=== PATIENT | female | born 1995 ===

== ENCOUNTER 2017-03-07 00:45 | Emergency (ER) | payer SELFPAY ==
[2017-03-07 01:48] VITALS: BMI 26.3
== END 2017-03-07 02:10 | disposition home or self-care (01) ==
LOC: H.EROB2 00:45
DX: O23.43 Unspecified infection of urinary tract in pregnancy, third trimester (principal); Z3A.30 30 weeks gestation of pregnancy

== ENCOUNTER 2017-03-09 21:02 | Inpatient (IN) | payer SELFPAY ==
--- NOTE | 2017-03-09 21:19 | OBHP ---
Datetime: 03/07/2017 01:59 IP Adm Impression: , intrauterine ; No Active Labor; Intact Membranes IP Admit Plan: Observation/Evaluation; Discharge home Admit Comment, IP Provider: 21-year-old at 30 weeks and 2 days gestational age presents to OB ED complaining of suprapubic tenderness. Patient denies any contractions, leakage of fluids, vaginal bleeding. Patient reports good movement. Patient states that she was diagnosed with a urinary t ract infection approximately one and a half to 2 weeks ago. Patient reports that she was prescribed a ntibiotics. Patient states that she is not picking up antibiotics and has not started taking them as of yet. records not available for review. Past medical history none Past surgical history none Medications vitamins No known drug allergies Obstetrical history Social history no tobacco, no alcohol, no drugs Physical exam: Refer to physical exam findings Assessment: 21-year-old at 30 weeks gestational age with urinary tract infection. No evidence of labor at this time. Both maternal well-being and well-being reassuring at this time. Plan: Patient given prescription for Macrobid 100 mg twice a day for 7 days Patient given labor precautions Discussed plan with patient and all patient questions answered Patient discharged home Extremities - PN: Normal Abdomen - PN: Normal Back - PN: Normal Lungs - PN: Normal Heart - PN: Normal Neurologic - PN: Normal HEENT - PN: Normal General - PN: Normal FHR - Baseline A Provider: 140s-150s Membranes, Provider: Intact Contraction Comments Provider: none Comments, ACOG Physical Exam: Cervix: Long, closed, posterior No blood, no fluid, no discharge Abdomen: Gravid, soft, nontender, nondistended No rebound, no guarding No CVA tenderness bilaterally Pool Provider: Negative EGA AdmitDate IP: 30.2 Vital Signs Provider: Reviewed; Within Normal Limits IP Chief Complaint: Maternal discomfort NICHD Variability Prov Fetus A: Moderate 6-25bpm NICHD Accel Fetus A IP Provider: [id number] FHR Category Provider Fetus A: Category I Dilatation, Provider: 0 Effacement, Provider: 0 Station, Provider: -4 Genitourinary Exam: Normal
[2017-03-09 21:43] VITALS: BMI 28.1
[2017-03-09] MEDS: Lactated Ringer's 1,000 ML IV SCH ×2 (21:50→22:30)
[2017-03-09 22:33] LABS: HEMOGLOBIN 10.6 g/dL (12.0-16.0); LYMPH # 1.3 K/uL (1.0-4.3); LYMPH % 7.3 % (20.0-40.0); MEAN CELL VOLUME 86.2 fl (81.0-99.0); MEAN CORPUSCULAR HEMOGLOBIN 28.2 pg (27.0-31.0); MEAN CORPUSCULAR HGB CONC 32.7 g/dL (33.0-37.0); MEAN PLATELET VOLUME 7.2 fl (7.2-11.7); MONO # 1.8 K/uL (0.0-0.8); MONO % 9.9 % (0.0-10.0); NEUT # 14.7 K/uL (1.8-7.0); NEUT % 82.8 % (50.0-75.0); PLATELET COUNT 232 K/uL (130-400); RBC 3.77 Mil/uL (3.80-5.20); WHITE BLOOD COUNT 17.8 K/uL (4.8-10.8)
[2017-03-09 22:38] LABS: ALBUMIN 3.7 g/dL (3.5-5.0); ALT/SGPT 26 U/L (9-52); AMYLASE 60 U/L (30-110); AST/SGOT 22 U/L (14-36); BLOOD UREA NITROGEN 4 mg/dl (7-17); GFR AFRICAN-AMERICAN > 60; GFR NON-AFRICAN AMERICAN > 60; LIPASE 51 U/L (23-300)
[2017-03-09] MEDS ORDERED: Lactated Ringer's 1,000 ML IV SCH (22:59)
[2017-03-09 23:03] LABS: SQUAMOUS EPITHIAL 8 /hpf (0-5); URINE BACTERIA RARE (<OCC); URINE BILIRUBIN SMALL (NEGATIVE); URINE BLOOD MODERATE (NEGATIVE); URINE CLARITY CLOUDY (Clear); URINE COLOR AMBER (YELLOW); URINE GLUCOSE (UA) NEG (Normal); URINE LEUKOCYTE ESTERASE TRACE Leu/uL (Negative); URINE NITRATE NEGATIVE (NEGATIVE); URINE PROTEIN 100 mg/dL (NEGATIVE)
[2017-03-10 00:54] LABS: BANDS 8 % (0-2); LYMPHOCYTE 7 % (20-50); METAMYELOCYTE 1 % (0-0); MONOCYTE 7 % (0-10); NEUTROPHIL 73 % (42-75); NUCLEATED RED BLOOD CELL 1 % (0-0); PLATELET ESTIMATE NORMAL (NORMAL); REACTIVE LYMPHOCYTES 4 % (0-0); TOTAL CELLS COUNTED 100
[2017-03-10 00:55] LABS: ANISOCYTOSIS SLIGHT; HYPOCHROMIC SLIGHT
--- NOTE | 2017-03-10 06:40 | OBADHP ---
Datetime: 03/09/2017 22:24 IP Chief Complaint Other: fever, vomiting and back pain Admit Comment, IP Provider: 21-year-old at 30.4 weeks gestational age presents to OB ED compla ining of subjective fever, chills, headache, vomiting and back pain for 2 days. Pt was diagnosed with UTI on 03/07/17 and sent home with macrobid 100 mg bid x 7 days. pt reports she has been taking abx as prescribed. Patient denies any contractions, leakage of fluids, vaginal bleeding. Patient reports go od movement. pt has hx multiple UTI during this . Past medical history none Past surgical history none Medications vitamins Alergies: NKDA Obstetrical history: None past surgery consultant hx: hx chlamydia(treated) in 11/2015. Social history: no tobacco, no alcohol, no drugs assessement: 21 yo IUP at 30.4 weeks GA is evaluated for pyelonephritis. plan: Admit to [facility] unit IV fluids blood cx UA Urine C_S CBC CMP amylase, lipase FFN case presented and discussed with on-call OB attending Dr Albert Chambers, PGY1 OB Hospitalist on-call : with PGY1, I saw and examined this patient. Agree with note ex PMH: UTI x 3 (Enterococcus)...last UTI treated by Dr Cortez (no urine culture done)...will admit for pUTI ( not improved with out patient treatment...Rocephin IV q 24h FFn done negative She understands medical condition, treatment and follow up... Extremities - PN: Normal Abdomen - PN: Normal Back - PN: Abnormal Lungs - PN: Normal Heart - PN: Normal Neurologic - PN: Normal HEENT - PN: Normal General - PN: Normal FHR - Baseline A Provider: 160 Membranes, Provider: Intact Comments, ACOG Physical Exam: Back: Mild left CVA tenderness ROS: general: no fatigue/no weakness / fever/chills HEENT: slight CARO; no visual dist CV: No CP; No palpitations Resp: no SOB; no cough GI: + N/ +V/D : no F/U/D MS: no joint pain; + back pain left side lumbar/thoraciac area VAGINA: no tingling; no pain; no prodromal symtpoms Gestation - Est Wks by US: 30.4 weeks Pool Provider: Negative IP Hx Assessment: The History has been Reviewed and is Current Vital Signs Provider: Reviewed IP Chief Complaint: Maternal discomfort NICHD Variability Prov Fetus A: Moderate 6-25bpm FHR Category Provider Fetus A: Category I Dilatation, Provider: 0 Effacement, Provider: 0 Genitourinary Exam: Normal EGA AdmitDate IP: 30.4 IP Adm Impression: , intrauterine ; No Active Labor IP Admit Plan: Admit to unit Datetime: 03/07/2017 01:59 Contraction Comments Provider: none NICHD Accel Fetus A IP Provider: [id number] Station, Provider: -4
[2017-03-10] MEDS ORDERED: Lactated Ringer's 1,000 ML IV SCH ×2 (08:45→11:02)
--- NOTE | 2017-03-10 08:47 | CP.PCM.CON ---
History of Present Illness - History of Present Illness History of Present Illness: Family Medicine Consult Note Asked to evaluate a 21 y/o female @30.4wks GA for fever and hypotension. Patient reports presenting to [facility] 3-4 days ago with suprapubic tenderness and was prescribed macrobid, which she had been taking. Despite antibiotics patient returned to [facility] yesterday evening with suprapubic pain, left sided flank pain, fevers, chills, nausea and vomiting. She was febrile and found to have leukocytosis. Patient was started on IV ceftriaxone and received 2L of LR fluids. This morning patient states she feels slightly better than initial presentation however continues to report left sided flank pain/lower back pain. Meds Allergies/Adverse Reactions: Allergies Allergy/AdvReac Type Severity Reaction Status Date / Time No Known Allergies Allergy Verified 03/07/17 01:47 - Medications Medications: Current Medications Ceftriaxone Sodium 1 gm/ (Sodium Chloride) 100 mls @ 100 mls/hr IVPB DAILY@ 2230 [facility] Lactated Ringer's (Lactated Ringer's) 1,000 mls @ 125 mls/hr IV .Q8H [facility] Physical Exam - Constitutional Additional comments: Uncomfortable - Head Exam Head Exam: ATRAUMATIC, NORMAL INSPECTION, NORMOCEPHALIC - Eye Exam Eye Exam: EOMI, PERRL - ENT Exam ENT Exam: Mucous Membranes Moist - Respiratory Exam Respiratory Exam: Clear to Auscultation Bilateral, NORMAL BREATHING PATTERN. absent: Rales, Rhonchi, Wheezes - Cardiovascular Exam Cardiovascular Exam: Tachycardia, REGULAR RHYTHM, +S1, +S2 - GI/Abdominal Exam GI & Abdominal Exam: Normal Bowel Sounds, Soft, Tenderness (Left flank tenderness). absent: Distended, Guarding, Rebound - Extremities Exam Extremities exam: Positive for: normal capillary refill. Negative for: calf tenderness, pedal edema - Back Exam Back exam: CVA tenderness (L). absent: CVA tenderness (R) - Neurological Exam Neurological exam: Alert, Oriented x3 - Psychiatric Exam Psychiatric exam: Normal Affect, Normal Mood - Skin Skin Exam: Dry, Warm Results - Vital Signs Recent Vital Signs: Last Vital Signs Temp 103.0 F H 03/10/17 07:55 Pulse Resp BP Pulse Ox - Labs Result Diagrams: 03/10/17 11:40 03/10/17 11:00 Assessment & Plan - Assessment and Plan (Free Text) Assessment: 21 y/o female @30.4wks GA with fever, leukocytosis, left sided flank pain and history of positive urine culture. Plan: Sepsis -Etiology possibly secondary to acute pyelonephritis -Previous urine culture from 02/26/17 revealed enterobacter Aerogenes -S/P 3 days of macrobid with no improvement -Tmax: 103.0 @07:55 on 03/10/17 -Leukocytosis initially 17.8 but trending downward to 15.9 -Lactic acid 1.2 -Amylase/Lipase WNL -AST/ALT WNL -Follow repeat urine culture and blood culture -Renal ultrasound ordered -IV fluids @150cc/hr -ID consult appreciated -Received ceftriaxone 1gm IV once -Abx changed to cefepime 1gm Q8H by ID for broader gram neg coverage. -Monitor fever Hypokalemia -Potassium: 3.1 -K-dur 20mg PO -Will follow BMP 30 weeks gestational age -Management as per OB
--- NOTE | 2017-03-10 09:33 | OBPN ---
Datetime: 03/10/2017 09:27 IP Progress Note Comment: Patient reports temperature denies any cough sputum production reports goo d movement no vaginal bleeding or uterine contractions Vital signs reviewed MAXIMUM TEMPERATURE 103 Lungs clear to auscultation cardiovascular sinus tachycardia Abdomen soft and gravid no rebound or guarding Extremities no Homans Intrauterine at 32 weeks Pyelonephritis Monitor CBC Send lab work Continue Rocephin Follow-up UA and blood cultures and urine cultures Observation Datetime: 03/09/2017 22:24 IP Progress Impression Other: fever, chills and back pain IP Progress Plan: Continue present management Pool Provider: Negative Membranes, Provider: Intact FHR - Baseline A Provider: 160 Gestation - Est Wks by US: 30.4 weeks Vital Signs Provider: Reviewed FHR Category Provider Fetus A: Category I NICHD Variability Prov Fetus A: Moderate 6-25bpm Dilatation, Provider: 0 Effacement, Provider: 0 Datetime: 03/07/2017 01:59 Contraction Comments Provider: none NICHD Accel Fetus A IP Provider: [id number] Station, Provider: -4
[2017-03-10 09:41] VITALS: TEMP 98.8
[2017-03-10 11:35] LABS: CALCIUM 8.5 mg/dL (8.4-10.2); GFR AFRICAN-AMERICAN > 60; GFR NON-AFRICAN AMERICAN > 60
[2017-03-10 11:36] LABS: BLOOD UREA NITROGEN 2 mg/dl (7-17)
[2017-03-10 12:31] LABS: BASO % 0.2 % (0.0-2.0); EOS % 0.1 % (0.0-4.0); HEMOGLOBIN 9.7 g/dL (12.0-16.0); LYMPH # 1.6 K/uL (1.0-4.3); LYMPH % 9.8 % (20.0-40.0); MEAN CELL VOLUME 86.4 fl (81.0-99.0); MEAN CORPUSCULAR HEMOGLOBIN 28.4 pg (27.0-31.0); MEAN CORPUSCULAR HGB CONC 32.9 g/dL (33.0-37.0); MEAN PLATELET VOLUME 7.5 fl (7.2-11.7); MONO # 1.9 K/uL (0.0-0.8); MONO % 11.8 % (0.0-10.0); NEUT # 12.4 K/uL (1.8-7.0); NEUT % 78.1 % (50.0-75.0); NRBC % 0.2 % (0.0-0.0); RBC 3.39 Mil/uL (3.80-5.20); RED CELL DISTRIBUTION WIDTH 12.9 % (11.5-14.5); WHITE BLOOD COUNT 15.9 K/uL (4.8-10.8)
--- NOTE | 2017-03-10 12:36 | CP.PCM.CON ---
History of Present Illness - History of Present Illness History of Present Illness: Infectious Disease Consultation Note- asked to see this patient at the request of family practice team for fever and r/o sepsis. HPI- Patient is a pleasant 21 year old female who is 30 weeks with her first who states she developed lower bad/flank pain on wednesday and came to ED here to be evaluated and was given pain medication adn Rx for oral abx and was d/c home and states since her symptoms did not improve on the oral antibiotics and also she developed fever and some nausea in addition she returned to hospital yesterday and was admitted for fever and r/o sepsis. Pt. was found to have leukocytosis and + UA and hence was admitted and was started on IV ceftriaxone by the primary team. She states he feels better compared to yesterday and denies any nausea today but states her appetite is not good still. she states she had CARO on admission but states it has resolved today. she denies any fever or chills today, denies any abdominal paina nd states her pain is only in her left lower back region without any radiation, denie any dysurea, denies any diarrhea, denies any cough, denies any sob, denies any chest pain. Pt's is at her bedside as well. denies any allergy to any meds. Review of Systems - Review of Systems Review of Systems: ROS- denies any nausea today but states her appetite is not good still. she states she had CARO on admission but states it has resolved today. she denies any fever or chills today, denies any abdominal paina nd states her pain is only in her left lower back region without any radiation, denie any dysurea, denies any diarrhea, denies any cough, denies any sob, denies any chest pain. Past Patient History - Past Medical History & Family History Past Medical History?: No - Past Social History Smoking Status: Never Smoked Alcohol: None Drugs: Denies Home Situation {Lives}: With Family - CARDIAC Hx Cardiac Disorders: No - PULMONARY Hx Respiratory Disorders: No - NEUROLOGICAL Hx Neurological Disorder: No - HEENT Hx HEENT Problems: No - RENAL Hx Chronic Kidney Disease: No - HEMATOLOGICAL/ONCOLOGICAL Hx Blood Disorders: No Meds Allergies/Adverse Reactions: Allergies Allergy/AdvReac Type Severity Reaction Status Date / Time No Known Allergies Allergy Verified 03/07/17 01:47 - Medications Medications: Current Medications Ceftriaxone Sodium 1 gm/ (Sodium Chloride) 100 mls @ 100 mls/hr IVPB DAILY@ 2230 [facility] Last Admin: 03/10/17 11:05 Dose: Not Given Lactated Ringer's (Lactated Ringer's) 1,000 mls @ 150 mls/hr IV .Q6H40M [facility] Last Admin: 03/10/17 11:16 Dose: 150 mls/hr Physical Exam - Constitutional Appears: No Acute Distress - Head Exam Head Exam: ATRAUMATIC - Eye Exam Eye Exam: EOMI, PERRL - ENT Exam ENT Exam: Normal Oropharynx - Neck Exam Neck exam: Positive for: Full Rom - Respiratory Exam Respiratory Exam: Clear to Auscultation Bilateral, NORMAL BREATHING PATTERN - Cardiovascular Exam Cardiovascular Exam: RRR, +S1, +S2 - GI/Abdominal Exam GI & Abdominal Exam: Normal Bowel Sounds, Soft Additional comments: No tenderness to palpation , no guarding, no rebound Minimal left CVA tenderness only - Extremities Exam Extremities exam: Positive for: normal inspection - Neurological Exam Neurological exam: Alert, Oriented x3 Results - Vital Signs Recent Vital Signs: Last Vital Signs Temp 98.8 F 03/10/17 08:55 Pulse Resp BP Pulse Ox - Labs Result Diagrams: 03/10/17 11:40 03/10/17 11:00 Labs: Laboratory Results - last 24 hr 03/10/17 03/10/17 03/10/17 11:00 11:00 11:40 WBC 15.9 H RBC 3.39 L Hgb 9.7 L Hct 29.3 L MCV 86.4 MCH 28.4 MCHC 32.9 L RDW 12.9 Plt Count 203 MPV 7.5 Neut % (Auto) 78.1 H Lymph % (Auto) 9.8 L [place] % (Auto) 11.8 H Eos % (Auto) 0.1 Baso % (Auto) 0.2 Neut # 12.4 H Lymph # 1.6 [place] # 1.9 H Eos # 0.0 Baso # 0.0 Sodium 135 Potassium 3.1 L Chloride 105 Carbon Dioxide 22 Anion Gap 11 BUN 2 L Creatinine 0.5 L Est GFR ( Amer) > 60 Est GFR (Non-Af Amer) > 60 Random Glucose 96 Lactic Acid 1.2 Calcium 8.5 Laboratory Results - last 72 hr 03/09/17 03/09/17 03/09/17 22:00 22:00 22:00 WBC 17.8 H D RBC 3.77 L Hgb 10.6 L Hct 32.5 L MCV 86.2 MCH 28.2 MCHC 32.7 L RDW 13.0 Plt Count 232 MPV 7.2 Neut % (Auto) 82.8 H Lymph % (Auto) 7.3 L [place] % (Auto) 9.9 Eos % (Auto) 0.0 Baso % (Auto) 0.0 Neut # 14.7 H Lymph # 1.3 [place] # 1.8 H Eos # 0.0 Baso # 0.0 Neutrophils % (Manual) 73 Band Neutrophils % 8 H Lymphocytes % (Manual) 7 L Reactive Lymphs % 4 H Monocytes % (Manual) 7 Metamyelocytes % 1 H Nucleated RBC % 1 H Platelet Estimate Normal Hypochromasia (manual) Slight Anisocytosis (manual) Slight Sodium 133 Potassium 3.1 L Chloride 102 Carbon Dioxide 21 L Anion Gap 13 BUN 4 L Creatinine 0.6 L Est GFR ( Amer) > 60 Est GFR (Non-Af Amer) > 60 Random Glucose 120 H Lactic Acid Calcium 9.0 Total Bilirubin 0.6 AST 22 ALT 26 Alkaline Phosphatase 107 Total Protein 7.2 Albumin 3.7 Globulin 3.6 Albumin/Globulin Ratio 1.0 Amylase 60 Lipase 51 Urine Color Urine Clarity Urine pH Ur Specific Joes Urine Protein Urine Glucose (UA) Urine Ketones Urine Blood Urine Nitrate Urine Bilirubin Urine Urobilinogen Ur Leukocyte Esterase Urine RBC (Auto) Urine Microscopic WBC Ur Squamous Epith Cells Urine Bacteria Fibronectin Negative Fibronectin Comment None 03/09/17 03/10/17 03/10/17 22:00 11:00 11:00 WBC RBC Hgb Hct MCV MCH MCHC RDW Plt Count MPV Neut % (Auto) Lymph % (Auto) [place] % (Auto) Eos % (Auto) Baso % (Auto) Neut # Lymph # [place] # Eos # Baso # Neutrophils % (Manual) Band Neutrophils % Lymphocytes % (Manual) Reactive Lymphs % Monocytes % (Manual) Metamyelocytes % Nucleated RBC % Platelet Estimate Hypochromasia (manual) Anisocytosis (manual) Sodium 135 Potassium 3.1 L Chloride 105 Carbon Dioxide 22 Anion Gap 11 BUN 2 L Creatinine 0.5 L Est GFR ( Amer) > 60 Est GFR (Non-Af Amer) > 60 Random Glucose 96 Lactic Acid 1.2 Calcium 8.5 Total Bilirubin AST ALT Alkaline Phosphatase Total Protein Albumin Globulin Albumin/Globulin Ratio Amylase Lipase Urine Color Stephania Urine Clarity Cloudy Urine pH 5.0 Ur Specific Joes 1.027 Urine Protein 100 Urine Glucose (UA) Neg Urine Ketones Trace Urine Blood Moderate Urine Nitrate Negative Urine Bilirubin Small Urine Urobilinogen 4.0 H Ur Leukocyte Esterase Trace Urine RBC (Auto) 257 H Urine Microscopic WBC 16 H Ur Squamous Epith Cells 8 H Urine Bacteria Rare Fibronectin Fibronectin Comment 03/10/17 11:40 WBC 15.9 H RBC 3.39 L Hgb 9.7 L Hct 29.3 L MCV 86.4 MCH 28.4 MCHC 32.9 L RDW 12.9 Plt Count 203 MPV 7.5 Neut % (Auto) 78.1 H Lymph % (Auto) 9.8 L [place] % (Auto) 11.8 H Eos % (Auto) 0.1 Baso % (Auto) 0.2 Neut # 12.4 H Lymph # 1.6 [place] # 1.9 H Eos # 0.0 Baso # 0.0 Neutrophils % (Manual) Band Neutrophils % Lymphocytes % (Manual) Reactive Lymphs % Monocytes % (Manual) Metamyelocytes % Nucleated RBC % Platelet Estimate Hypochromasia (manual) Anisocytosis (manual) Sodium Potassium Chloride Carbon Dioxide Anion Gap BUN Creatinine Est GFR ( Amer) Est GFR (Non-Af Amer) Random Glucose Lactic Acid Calcium Total Bilirubin AST ALT Alkaline Phosphatase Total Protein Albumin Globulin Albumin/Globulin Ratio Amylase Lipase Urine Color Urine Clarity Urine pH Ur Specific Joes Urine Protein Urine Glucose (UA) Urine Ketones Urine Blood Urine Nitrate Urine Bilirubin Urine Urobilinogen Ur Leukocyte Esterase Urine RBC (Auto) Urine Microscopic WBC Ur Squamous Epith Cells Urine Bacteria Fibronectin Fibronectin Comment Microbiology 02/26/17 15:47 Urine,Clean Catch Urine Culture - Final Enterobacter Aerogenes 01/07/17 15:42 Urine,Clean Catch Urine Culture - Final Enterobacter Aerogenes Assessment & Plan (1) Leukocytosis Status: Acute (2) UTI (urinary tract infection) in in third trimester Status: Acute - Assessment and Plan (Free Text) Assessment: A/P- 21 year old female 30 weeks with leukocytosis and + UA and based on previous recent urine cx enterobacter UTI. currently pt. is comfortable and in NAD. leukocytosis trending down compared to yesterday's labs./ Afebrile urine cx from 02/26/2017- enterobacter Aerogenes sens to ceftriaxone and cefepime. plan- await blood and urine cx from this admission. In the interim would advise to switch abx to cefepime for broader gram neg coverage ( safe during ). await renal US r/o pyelo. monitor temp and wbc closely. All above d/w patient and she verbalizes full understanding of all above. Thank you for allowing me to take part in the care oft his patient.
--- NOTE | 2017-03-10 14:52 | US ---
PROCEDURE: Ultrasound of the Kidneys HISTORY: Suspected pyelonephritis COMPARISON: None available. TECHNIQUE: Sonogram of the kidneys. FINDINGS: RIGHT KIDNEY: Measures: 9.8 cm. Normal in size, contour and echogenicity. No mass or calculus. Minimal fullness of collecting system without kyle hydronephrosis. LEFT KIDNEY: Measures: 11.3 cm. Normal in size, contour and echogenicity. No stone, solid mass lesion or hydronephrosis visualized. OTHER FINDINGS: None. IMPRESSION: Unremarkable renal sonogram.
[2017-03-10] MEDS: Cefepime 1 GM in Sodium Chloride 0.9% 100 ML IVPB SCH (16:58)
[2017-03-10] MEDS ORDERED: Potassium Chloride 20 mEq/15 ml LIQ UD PO ONE (17:14)
[2017-03-10] MEDS: Lactated Ringer's 1,000 ML IV SCH (22:03)
[2017-03-11] MEDS: Cefepime 1 GM in Sodium Chloride 0.9% 100 ML IVPB SCH ×3 (01:05→16:36)
[2017-03-11 06:44] LABS: BASO % 0.2 % (0.0-2.0); EOS % 0.1 % (0.0-4.0); HEMOGLOBIN 8.9 g/dL (12.0-16.0); LYMPH # 1.1 K/uL (1.0-4.3); MEAN CELL VOLUME 85.9 fl (81.0-99.0); MEAN CORPUSCULAR HEMOGLOBIN 28.6 pg (27.0-31.0); MEAN CORPUSCULAR HGB CONC 33.3 g/dL (33.0-37.0); MEAN PLATELET VOLUME 7.1 fl (7.2-11.7); MONO # 0.9 K/uL (0.0-0.8); MONO % 8.7 % (0.0-10.0); NEUT # 8.8 K/uL (1.8-7.0); RBC 3.12 Mil/uL (3.80-5.20); RED CELL DISTRIBUTION WIDTH 13.1 % (11.5-14.5); WHITE BLOOD COUNT 10.8 K/uL (4.8-10.8)
[2017-03-11 07:00] LABS: CALCIUM 8.5 mg/dL (8.4-10.2); GFR AFRICAN-AMERICAN > 60; GFR NON-AFRICAN AMERICAN > 60
[2017-03-11 07:06] LABS: BLOOD UREA NITROGEN < 2 mg/dl (7-17)
[2017-03-11] MEDS ORDERED: Potassium Chloride 20 mEq ER Tab PO ONE (11:02)
[2017-03-11] MEDS: Lactated Ringer's 1,000 ML IV SCH (14:41)
--- NOTE | 2017-03-11 14:59 | CP.PCM.PN ---
Subjective - Date & Time of Evaluation Date of Evaluation: 03/11/17 Time of Evaluation: 12:30 - Subjective Subjective: Patient seen and examined at bedside with attending. She appears in no acute distress, sitting upright along side bed. Patient states that her left flank and back pain has improved significantly from prior assessment. She continues to experience epigastric burning sensation radiating upward but denies any further episodes of vomiting. She has been afebrile over the last 24 hours and further denies chills, nausea or SOB. Patient has been tolerating PO. Renal U/S ordered yesterday has returned unremarkable and urine culture results are still pending. Objective - Vital Signs/Intake and Output Vital Signs (last 24 hours): Temp Pulse Resp BP Pulse Ox 98.8 F 03/10/17 08:55 - Medications Medications: Current Medications Acetaminophen (Tylenol 325mg Tab) 650 mg PO Q6 PRN PRN Reason: Fever >100.4 F Last Admin: 03/11/17 10:50 Dose: 650 mg Famotidine (Pepcid) 20 mg PO DAILY [facility] Last Admin: 03/11/17 11:49 Dose: 20 mg Cefepime HCl 1 gm/ Sodium (Chloride) 100 mls @ 100 mls/hr IVPB Q8 [facility] Last Admin: 03/11/17 08:05 Dose: 100 mls/hr Lactated Ringer's (Lactated Ringer's) 1,000 mls @ 125 mls/hr IV .Q8H [facility] Last Admin: 03/11/17 14:41 Dose: 125 mls/hr Lactobacillus Acidophilus (Bacid Acidophilus) 1 cap PO BID [facility] - Labs Labs: 03/11/17 05:45 03/11/17 05:45 - Constitutional Appears: Non-toxic, No Acute Distress - Head Exam Head Exam: ATRAUMATIC, NORMAL INSPECTION, NORMOCEPHALIC - Eye Exam Eye Exam: EOMI, PERRL - ENT Exam ENT Exam: Mucous Membranes Moist - Respiratory Exam Respiratory Exam: Clear to Ausculation Bilateral, NORMAL BREATHING PATTERN. absent: Rales, Rhonchi, Wheezes, Respiratory Distress - Cardiovascular Exam Cardiovascular Exam: REGULAR RHYTHM, RRR, +S1, +S2 - GI/Abdominal Exam GI & Abdominal Exam: Soft, Tenderness (Mild epigastric and left flank tenderness ) Additional comments: Gravid abdomen. - Extremities Exam Extremities Exam: absent: Calf Tenderness, Pedal Edema - Back Exam Back Exam: CVA tenderness (L) (Improved from prior assessment). absent: CVA tenderness (R) - Neurological Exam Neurological Exam: Alert, Awake, Oriented x3 - Psychiatric Exam Psychiatric exam: Normal Affect, Normal Mood - Skin Skin Exam: Dry, Warm Assessment and Plan - Assessment and Plan (Free Text) Assessment: Patient is a 21 y/o female @30.4wks GA who presented to [facility] on 03/09/17 with suprapubic pain, left sided flank pain, fevers, chills, nausea and vomiting. She was febrile and found to have leukocytosis. Patient subsequently received IV fluids and was started on IV antibiotics. She has been improving with treatment but reports some persistent left lower back and epigastric pain. Plan: Epigastric pain and left flank pain -Etiology of epigastric and left sided flank pain/back pain possibly secondary to acute pyelonephritis and gastroesophageal reflux -Previous urine culture from 02/26/17 revealed enterobacter Aerogenes and patient had no improvement after 3 days of macrobid -Patient has been afebrile for the last 24 hours. Tmax: 103.0 @07:55 on 03/10/17 -Leukocytosis has resolved 17.8 > 15.9 > 10.8 -Amylase/Lipase WNL -AST/ALT WNL -Blood culture has no growth after 24 hrs -Repeat urine C&S pending results -Renal ultrasound did not detect any masses or hydronephrosis. -MRI abdomen ordered to better visualize any possible alternative intra- abdominal pathology -ID consult appreciated -Received ceftriaxone 1gm IV once -Abx changed to cefepime 1gm Q8H by ID for broader gram neg coverage. (Started , Current day 2) -Pepcid 20mg PO daily as per existing OB orders Hypokalemia -Potassium improved from 3.1 > 3.4 -K-dur 20mg PO daily -Will follow BMP Sepsis, resolved -Etiology possibly secondary to acute pyelonephritis 30 weeks gestational age -Management as per OB
[2017-03-11] MEDS: Lactobacillus Acidophilus 500 MU Cap PO SCH (16:36)
--- NOTE | 2017-03-11 19:30 | CP.PCM.PN ---
Subjective - Date & Time of Evaluation Date of Evaluation: 03/11/17 Time of Evaluation: 19:30 - Subjective Subjective: ID Note- Pt. seen and examined today. Pt. in much better spirits and states she feels much better. Sh denies any fever or chills, denies any dysurea and states her left flank pain has resolved. Objective - Vital Signs/Intake and Output Vital Signs (last 24 hours): Temp Pulse Resp BP Pulse Ox 98.8 F 03/10/17 08:55 - Medications Medications: Current Medications Acetaminophen (Tylenol 325mg Tab) 650 mg PO Q6 PRN PRN Reason: Fever >100.4 F Last Admin: 03/11/17 10:50 Dose: 650 mg Famotidine (Pepcid) 20 mg PO DAILY [facility] Last Admin: 03/11/17 11:49 Dose: 20 mg Cefepime HCl 1 gm/ Sodium (Chloride) 100 mls @ 100 mls/hr IVPB Q8 [facility] Last Admin: 03/11/17 16:36 Dose: 100 mls/hr Lactated Ringer's (Lactated Ringer's) 1,000 mls @ 125 mls/hr IV .Q8H [facility] Last Admin: 03/11/17 14:41 Dose: 125 mls/hr Lactobacillus Acidophilus (Bacid Acidophilus) 1 cap PO BID [facility] Last Admin: 03/11/17 16:36 Dose: 1 cap - Labs Labs: - Additional Findings Additional findings: - Constitutional Appears: No Acute Distress - Head Exam Head Exam: ATRAUMATIC - Eye Exam Eye Exam: EOMI, PERRL - ENT Exam ENT Exam: Normal Oropharynx - Neck Exam Neck exam: Positive for: Full Rom - Respiratory Exam Respiratory Exam: Clear to Auscultation Bilateral, NORMAL BREATHING PATTERN - Cardiovascular Exam Cardiovascular Exam: RRR, +S1, +S2 - GI/Abdominal Exam GI & Abdominal Exam: Normal Bowel Sounds, Soft Additional comments: No tenderness to palpation , no guarding, no rebound no CVA tenderness b/l - Extremities Exam Extremities exam: Positive for: normal inspection - Neurological Exam Neurological exam: Alert, Oriented x 3 Laboratory Results - last 72 hr 03/09/17 03/09/17 03/09/17 22:00 22:00 22:00 WBC 17.8 H D RBC 3.77 L Hgb 10.6 L Hct 32.5 L MCV 86.2 MCH 28.2 MCHC 32.7 L RDW 13.0 Plt Count 232 MPV 7.2 Neut % (Auto) 82.8 H Lymph % (Auto) 7.3 L Desha % (Auto) 9.9 Eos % (Auto) 0.0 Baso % (Auto) 0.0 Neut # 14.7 H Lymph # 1.3 Desha # 1.8 H Eos # 0.0 Baso # 0.0 Neutrophils % (Manual) 73 Band Neutrophils % 8 H Lymphocytes % (Manual) 7 L Reactive Lymphs % 4 H Monocytes % (Manual) 7 Metamyelocytes % 1 H Nucleated RBC % 1 H Platelet Estimate Normal Hypochromasia (manual) Slight Anisocytosis (manual) Slight Sodium 133 Potassium 3.1 L Chloride 102 Carbon Dioxide 21 L Anion Gap 13 BUN 4 L Creatinine 0.6 L Est GFR ( Amer) > 60 Est GFR (Non-Af Amer) > 60 Random Glucose 120 H Lactic Acid Calcium 9.0 Total Bilirubin 0.6 AST 22 ALT 26 Alkaline Phosphatase 107 Total Protein 7.2 Albumin 3.7 Globulin 3.6 Albumin/Globulin Ratio 1.0 Amylase 60 Lipase 51 Urine Color Urine Clarity Urine pH Ur Specific [place] Urine Protein Urine Glucose (UA) Urine Ketones Urine Blood Urine Nitrate Urine Bilirubin Urine Urobilinogen Ur Leukocyte Esterase Urine RBC (Auto) Urine Microscopic WBC Ur Squamous Epith Cells Urine Bacteria Fibronectin Negative Fibronectin Comment None 03/09/17 03/10/17 03/10/17 22:00 11:00 11:00 WBC RBC Hgb Hct MCV MCH MCHC RDW Plt Count MPV Neut % (Auto) Lymph % (Auto) Desha % (Auto) Eos % (Auto) Baso % (Auto) Neut # Lymph # Desha # Eos # Baso # Neutrophils % (Manual) Band Neutrophils % Lymphocytes % (Manual) Reactive Lymphs % Monocytes % (Manual) Metamyelocytes % Nucleated RBC % Platelet Estimate Hypochromasia (manual) Anisocytosis (manual) Sodium 135 Potassium 3.1 L Chloride 105 Carbon Dioxide 22 Anion Gap 11 BUN 2 L Creatinine 0.5 L Est GFR ( Amer) > 60 Est GFR (Non-Af Amer) > 60 Random Glucose 96 Lactic Acid 1.2 Calcium 8.5 Total Bilirubin AST ALT Alkaline Phosphatase Total Protein Albumin Globulin Albumin/Globulin Ratio Amylase Lipase Urine Color Stephania Urine Clarity Cloudy Urine pH 5.0 Ur Specific [place] 1.027 Urine Protein 100 Urine Glucose (UA) Neg Urine Ketones Trace Urine Blood Moderate Urine Nitrate Negative Urine Bilirubin Small Urine Urobilinogen 4.0 H Ur Leukocyte Esterase Trace Urine RBC (Auto) 257 H Urine Microscopic WBC 16 H Ur Squamous Epith Cells 8 H Urine Bacteria Rare Fibronectin Fibronectin Comment 03/10/17 03/11/17 03/11/17 11:40 05:45 05:45 WBC 15.9 H 10.8 RBC 3.39 L 3.12 L Hgb 9.7 L 8.9 L Hct 29.3 L 26.8 L MCV 86.4 85.9 MCH 28.4 28.6 MCHC 32.9 L 33.3 RDW 12.9 13.1 Plt Count 203 180 MPV 7.5 7.1 L Neut % (Auto) 78.1 H 81.0 H Lymph % (Auto) 9.8 L 10.0 L Desha % (Auto) 11.8 H 8.7 Eos % (Auto) 0.1 0.1 Baso % (Auto) 0.2 0.2 Neut # 12.4 H 8.8 H Lymph # 1.6 1.1 Desha # 1.9 H 0.9 H Eos # 0.0 0.0 Baso # 0.0 0.0 Neutrophils % (Manual) Band Neutrophils % Lymphocytes % (Manual) Reactive Lymphs % Monocytes % (Manual) Metamyelocytes % Nucleated RBC % Platelet Estimate Hypochromasia (manual) Anisocytosis (manual) Sodium 135 Potassium 3.4 L Chloride 105 Carbon Dioxide 24 Anion Gap 9 L BUN < 2 L Creatinine 0.4 L Est GFR ( Amer) > 60 Est GFR (Non-Af Amer) > 60 Random Glucose 85 Lactic Acid Calcium 8.5 Total Bilirubin AST ALT Alkaline Phosphatase Total Protein Albumin Globulin Albumin/Globulin Ratio Amylase Lipase Urine Color Urine Clarity Urine pH Ur Specific [place] Urine Protein Urine Glucose (UA) Urine Ketones Urine Blood Urine Nitrate Urine Bilirubin Urine Urobilinogen Ur Leukocyte Esterase Urine RBC (Auto) Urine Microscopic WBC Ur Squamous Epith Cells Urine Bacteria Fibronectin Fibronectin Comment Microbiology 03/09/17 22:00 Urine,Clean Catch Urine Culture - Final No Growth (<1,000 CFU/ML) 03/10/17 15:00 Blood-Venous Blood Culture - Preliminary NO GROWTH AFTER 24 HOURS 03/09/17 22:00 Blood-Venous Blood Culture - Preliminary NO GROWTH AFTER 24 HOURS Accession No. : [id number] Patient Name / ID : EDEL BRITO / [id number] Exam Date : 03/10/2017 13:40:37 ( Approved ) Study Comment : Sex / Age : F / 21Y Creator : Pavel Gamboa MD Dictator : Pavel Gamboa MD Remote Control Assembler : Psychiatric Cns : Pavel Gamboa MD Approver2 : Report Date : 03/10/2017 14:46:36 My Comment : PROCEDURE: Ultrasound of the Kidneys HISTORY: Suspected pyelonephritis COMPARISON: None available. TECHNIQUE: Sonogram of the kidneys. FINDINGS: RIGHT KIDNEY: Measures: 9.8 cm. Normal in size, contour and echogenicity. No mass or calculus. Minimal fullness of collecting system without kyle hydronephrosis. LEFT KIDNEY: Measures: 11.3 cm. Normal in size, contour and echogenicity. No stone, solid mass lesion or hydronephrosis visualized. OTHER FINDINGS: None. IMPRESSION: Unremarkable renal sonogram. Assessment and Plan (1) Leukocytosis Status: Acute (2) UTI (urinary tract infection) in in third trimester Status: Acute - Assessment and Plan (Free Text) Assessment: A/P- 21 year old female 30 weeks with leukocytosis and + UA and based on previous recent urine cx enterobacter UTI. afebrile today. leukocytosis has resolved today. blood cx- neg x 2 urine cx from this admission - negative urine cx from 02/26/2017- enterobacter Aerogenes sens to ceftriaxone and cefepime. renal US- negative as per report plan- advise to continue with IV cefepime day #2 await renal US r/o pyelo. monitor temp .
[2017-03-12] MEDS: Cefepime 1 GM in Sodium Chloride 0.9% 100 ML IVPB SCH ×3 (00:25→16:05)
[2017-03-12 07:11] LABS: HEMOGLOBIN 8.5 g/dL (12.0-16.0); MEAN CELL VOLUME 85.7 fl (81.0-99.0); MEAN CORPUSCULAR HGB CONC 33.8 g/dL (33.0-37.0); RBC 2.94 Mil/uL (3.80-5.20); WHITE BLOOD COUNT 7.8 K/uL (4.8-10.8)
[2017-03-12 07:30] LABS: BLOOD UREA NITROGEN 3 mg/dl (7-17); CALCIUM 8.6 mg/dL (8.4-10.2); GFR AFRICAN-AMERICAN > 60; GFR NON-AFRICAN AMERICAN > 60
[2017-03-12] MEDS: Lactobacillus Acidophilus 500 MU Cap PO SCH ×2 (09:18→16:04)
[2017-03-12] MEDS: Lactated Ringer's 1,000 ML IV SCH (09:19)
--- NOTE | 2017-03-12 13:35 | OBPN ---
Datetime: 03/12/2017 05:56 IP Progress Impression Other: fever, back pain and vomiting IP Progress Plan: Continue present management IP Progress Note Comment: 21-year-old at 30.6 weeks gestational age admitted to [facility] unit fo r pyelonephritis. Pt denies any fever, chills, nausea, vomiting, headache or neck stiffness last nigh t. maxium temperature was 98.4 F last night. reports mild left flank pain this morning but denies dys uria or suprapubic pain. reports +FM. denies BV, SROM. PE: General: A_O, resting comfortably in bed, NAD HEENT: white sclera, pink conjunctiva, oral mucosa moist. supple neck. Lungs: CTA B/L, no wheezing, rhonchi or rales CVS: sinus tachy, normal S1, S2. ABD: +BS, non-tender, non-rebound tenderness back: mild left CVA tenderness EXT: no edema, negative Wandy's sign, calves nontender Neuro/psych: AAOX3, no grossly focal deficit, preserved affect and mood. assessement: Intrauterine at 32.6 weeks gestation. Pyelonephritis Monitor CBC, BMP Continue with cefepin as per ID recommendation. blood cx and urine cx both negative Continue Observation Sultan Chambers, PGY1 Addendum by Dr. Dubois: Patient evaluated independently. Patient is asymptomatic, no abdominal pain , no back pain, no fever, no vaginal bleeding, +FM, no leaking. Patient tolerating PO diet, ambulatin g/voiding well. NST last night Reactive. no ctxns. VS stable last night. Over 48 hours no fever. MRI report pending. WBC this morning = 7.8. WIll speak with ID and Family medicine team. Patient could po ssibly be discharged home on PO antibiotics Vital Signs Provider: Reviewed
--- NOTE | 2017-03-12 14:24 | MRI ---
PROCEDURE: MRI abdomen HISTORY: Fever, Leukocytosis, Abdominal pain COMPARISON: None available TECHNIQUE: Multiplanar, multi sequence imaging of the abdomen and pelvis was performed without intravenous gadolinium administration. FINDINGS: The examination demonstrates an intrauterine gestation in cephalic presentation. There is a left lateral placenta. There is no evidence of placenta previa. Normal quantity of amniotic fluid is visualized. No gross anatomic abnormality. Fluid distends the stomach and urinary bladder. No hydronephrosis. The maternal liver is normal in size, contour and signal intensity. There is a 4 mm high T2 rounded nonspecific lesion in the dome of the right hepatic lobe. No other mass. No biliary dilatation. The gallbladder is unremarkable. There is no mural thickening or filling defect. No pericholecystic fluid or inflammatory change appreciated. The spleen is normal in appearance. There is no focal mass. The pancreas is unremarkable. There is no pancreatic mass or peripancreatic fluid collection. There is no adrenal mass. There is no renal mass. There is mild right hydronephrosis likely related to the late term gestation. No heterogeneity of the renal parenchymal signal is appreciated. There is trace left perinephric fluid. This is a nonspecific finding but may be seen in association with pyelonephritis. There is no right perinephric fluid. A normal appendix is not positively identified. There is no evidence of acute appendicitis. There is no pericecal inflammatory change. There is trace fluid in the right paracolic gutter, nonspecific. There is no generalized ascites. There is a very small umbilical hernia containing trace ascites. No abnormal bowel is appreciated. Both maternal ovaries are identified. They are unremarkable, with multiple small follicles. The maternal urinary bladder is poorly distended. There is no gross mural thickening. The marrow signal of the visualized osseous structures is within normal limits. IMPRESSION: No clear evidence of acute appendicitis. A normal appendix is not positively identified. There is trace fluid in the right pericolic gutter. This is nonspecific. There is mild right hydronephrosis and proximal hydroureter, consistent with current late term gestation. There is no left hydronephrosis. There is trace left perinephric fluid. This is a nonspecific finding but may be seen in association with pyelonephritis. No other signs of pyelonephritis are evident no evidence of renal abscess. No other significant abnormality is noted. Preliminary interpretation of this examination was reported by Navut at 5:37 p.m. on 03/11/2017. There is discordance of this report with the preliminary interpretation. Trace left perinephric fluid was not described in the preliminary report of this examination. Trace right pericolic gutter fluid was not described in the preliminary report of this examination. These are nonspecific findings, however. The remainder of the parameter border is in concurrence with this report.
--- NOTE | 2017-03-12 16:52 | US ---
PROCEDURE: Limited biophysical profile HISTORY: pyelonephritis COMPARISON: Not available TECHNIQUE: A limited biophysical profile examination was performed. Full evaluation of the including biometry was not performed at this time. FINDINGS: A single live intrauterine gestation is identified in cephalic presentation. cardiac activity is observed. The biophysical profile score is 8 out of 8. The JOAQUIN is 12.81 cm. The heart rate is 130 beats per minute. IMPRESSION: Normal limited biophysical profile examination
--- NOTE | 2017-03-12 17:29 | CP.PCM.PN ---
Subjective - Date & Time of Evaluation Date of Evaluation: 03/12/17 Time of Evaluation: 10:00 - Subjective Subjective: Patient appears more comfortable today and reports resolution of left sided flank pain. She also reports significant improvement in epigastric burning sensation. She continues to remain afebrile with no leukocytosis for over 48 hrs. Patient is tolerating PO and denies chills, chest pain, sob, dysuria nausea or vomiting. MRI revealed signs of left vernon-nephric stranding and urine culture results reveal no growth to date. Objective - Vital Signs/Intake and Output Vital Signs (last 24 hours): Temp Pulse Resp BP Pulse Ox 98.8 F 03/10/17 08:55 - Medications Medications: Current Medications Acetaminophen (Tylenol 325mg Tab) 650 mg PO Q6 PRN PRN Reason: Fever >100.4 F Last Admin: 03/11/17 10:50 Dose: 650 mg Famotidine (Pepcid) 20 mg PO DAILY [facility] Last Admin: 03/12/17 09:18 Dose: 20 mg Cefepime HCl 1 gm/ Sodium (Chloride) 100 mls @ 100 mls/hr IVPB Q8 [facility] Last Admin: 03/12/17 16:05 Dose: 100 mls/hr Lactated Ringer's (Lactated Ringer's) 1,000 mls @ 125 mls/hr IV .Q8H [facility] Last Admin: 03/12/17 09:19 Dose: 125 mls/hr Lactobacillus Acidophilus (Bacid Acidophilus) 1 cap PO BID [facility] Last Admin: 03/12/17 16:04 Dose: 1 cap - Labs Labs: 03/12/17 06:00 03/12/17 06:00 - Constitutional Appears: Non-toxic, No Acute Distress - Head Exam Head Exam: ATRAUMATIC, NORMAL INSPECTION, NORMOCEPHALIC - Eye Exam Eye Exam: EOMI, PERRL - ENT Exam ENT Exam: Mucous Membranes Moist - Respiratory Exam Respiratory Exam: Clear to Ausculation Bilateral, NORMAL BREATHING PATTERN. absent: Rales, Rhonchi, Wheezes, Respiratory Distress - Cardiovascular Exam Cardiovascular Exam: REGULAR RHYTHM, RRR, +S1, +S2 - GI/Abdominal Exam GI & Abdominal Exam: Soft, Normal Bowel Sounds. absent: Distended, Tenderness - Extremities Exam Extremities Exam: absent: Calf Tenderness, Pedal Edema - Back Exam Back Exam: absent: CVA tenderness (L), CVA tenderness (R) - Neurological Exam Neurological Exam: Awake, Oriented x3 - Psychiatric Exam Psychiatric exam: Normal Affect, Normal Mood - Skin Skin Exam: Dry, Warm Assessment and Plan - Assessment and Plan (Free Text) Assessment: Patient is a 21 y/o female @30.4wks GA who presented to [facility] on 03/09/17 with suprapubic pain, left sided flank pain, fevers, chills, nausea and vomiting. She was febrile and found to have leukocytosis. Patient subsequently received IV fluids and was started on IV antibiotics. She has received 4 days of IV antibiotics and has remained afebrile for over 48 hours. Plan: Pyelonephritis -Previous urine culture from 02/26/17 revealed enterobacter Aerogenes and patient had no improvement after 3 days of macrobid -Now significantly improved after 4 days of antibiotics -Patient has been afebrile for the last 48 hours. Tmax: 103.0 @07:55 on 03/10/17 -Leukocytosis has resolved 17.8 > 15.9 > 10.8 > 7.8 -Blood culture has no growth after 48 hrs -Repeat urine C&S revealed no growth -Renal ultrasound did not detect any masses or hydronephrosis. -MRI abdomen revealed left vernon-nephric stranding, which is consistent with pyelonephritis -ID consult appreciated -Received ceftriaxone 1gm IV once -cefepime 1gm Q8H by ID for broader gram neg coverage. (Started 03/10, Current day 3) -As per ID, patient would benefit from additional day of IV antibiotics and may be discharged tomorrow with cefdinir 300mg PO Q12h for an additional 7 days Hypokalemia -Likely secondary to GI losses -Potassium improved from 3.1 > 3.4 > 3.6 -K-dur 20mg PO daily Sepsis, resolved -Etiology possibly secondary to acute pyelonephritis 30 weeks gestational age -Management as per OB
[2017-03-13] MEDS: Cefepime 1 GM in Sodium Chloride 0.9% 100 ML IVPB SCH ×2 (00:30→09:56)
[2017-03-13] MEDS: Lactated Ringer's 1,000 ML IV SCH ×3 (04:15→13:09)
[2017-03-13] MEDS: Lactobacillus Acidophilus 500 MU Cap PO SCH (09:55)
--- NOTE | 2017-03-14 09:03 | OBPN ---
Datetime: 03/13/2017 06:03 IP Progress Impression Other: fever, back pain and vomiting IP Progress Plan: Discharge Vital Signs Provider: Reviewed Datetime: 03/12/2017 19:08 FHR - Baseline A Provider: 150 Gestation - Est Wks by US: 30.6 IP Progress Note Comment: S: This is a 21 y/o at 30.6 weeks GA admited on 03/09/17 complaining of fever, chills, left flank pain and nausea. Pt was found tachycardic, hypotensive, elveated WBC an d positive urinalysis. Pt was started on IV Ceftriaxone and IV fluids. Hospitalist and Infectious Dis ease were consulted.for further managemetn of pyelonephritis. - Today, pt reports feeling better. Pt denies headache, fever, N/V/D, abdominal pain or rash. O: Blood culture and urine cultures showed NO growth on 03/10/17, WBC trend down to 7.8 today. Te mperature showed NO fever for more than 30 hours. Renal US WNL on 03/10/17. Abdominal MRI r/o appendi citis and non-specific signs of pyelonephritis on 03/11/17. A_P: --IUP at 30.6 weeks GA will follow PNC at clinic, next appointment on Wednesday03/15/17 at 2:40 pm. --Pyelonephritis: As per ID recomendatiosn, pt will be discharged tomorrow after 1 more night of I V antibiotics. Recommended Abx: Cefdinir 300mg Q12h for 7 days. Pt will continue with Macrobid 100 mg BID PO for the rest of . Pt educated on PTL precautions. Wes Powell PGY-1. Vital Signs Provider Details: Non-alarming VS NICHD Accel Fetus A IP Provider: 10X10 FHR Category Provider Fetus A: Category I NICHD Variability Prov Fetus A: Moderate 6-25bpm
== END 2017-03-13 15:50 | disposition home or self-care (01) | DRG 886 ==
LOC: H.EROB2 21:02 → H.OB/GYN 23:04
PROVIDERS: ADMIT Obstetrics & Gynecology; ATTEND Obstetrics & Gynecology
PROC: 4A1HXCZ Monitoring of Products of Conception, Cardiac Rate, External Approach (ICD-10-PCS; principal; 2017-03-09)
DX: O23.03 Infections of kidney in pregnancy, third trimester (principal); E87.6 Hypokalemia; I95.89 Other hypotension; B95.2 Enterococcus as the cause of diseases classified elsewhere; D72.828 Other elevated white blood cell count; Z3A.30 30 weeks gestation of pregnancy; Z87.440 Personal history of urinary (tract) infections

== ENCOUNTER 2017-05-09 14:41 | Inpatient (IN) | payer MEDICAID, SELFPAY ==
[2017-05-09 14:51] VITALS: BMI 26.1
[2017-05-09] MEDS ORDERED: Lactated Ringer's 1,000 ML IV SCH (15:18)
[2017-05-09] MEDS: Lactated Ringer's 1,000 ML IV SCH ×2 (15:30→16:30)
[2017-05-09 16:11] LABS: BASO % 0.2 % (0.0-2.0); EOS % 0.1 % (0.0-4.0); HEMATOCRIT 34.9 % (34.0-47.0); LYMPH # 1.7 K/uL (1.0-4.3); LYMPH % 15.2 % (20.0-40.0); MEAN CELL VOLUME 83.8 fl (81.0-99.0); MEAN CORPUSCULAR HEMOGLOBIN 27.3 pg (27.0-31.0); MEAN CORPUSCULAR HGB CONC 32.6 g/dL (33.0-37.0); MEAN PLATELET VOLUME 7.7 fl (7.2-11.7); MONO # 0.5 K/uL (0.0-0.8); MONO % 4.6 % (0.0-10.0); NEUT % 79.9 % (50.0-75.0); RED CELL DISTRIBUTION WIDTH 13.7 % (11.5-14.5); WHITE BLOOD COUNT 11.2 K/uL (4.8-10.8)
[2017-05-09] MEDS ORDERED: Oxytocin 30 units/LR 500ML 30 U/500 ML BAG IV ONE (17:17)
[2017-05-09] MEDS ORDERED: Fentanyl/Bupivacaine HCl 250 ML EPI ONE (17:39)
[2017-05-09] MEDS ORDERED: Lidocaine 1% Inj (20ml) ONE (21:06)
[2017-05-09] MEDS ORDERED: Cefdinir 300 MG CAP PO SCH (22:00)
[2017-05-09] MEDS ORDERED: Oxycodone/Acetaminophen 5/325 mg Tab PO PRN (22:49)
--- NOTE | 2017-05-09 23:13 | OBDS ---
DELIVERY PERSONNEL Delivery Doctor: Samanta Solomon MD Primary Care Pediatrician: Ma. Mayra Loya RN Anesthesiologist: Harpal Galdamez MD MATERNAL INFORMATION Delivery Anesthesia: Epidural Estimated Blood Loss (ml): 150 Provider Comments: Delivered a live baby girl at 2217 the baby was bulb suctioned on the perineum th en transferred to the maternal chest. The cord was clamped and cut 3 vessels noted cord blood was obt ained and sent to the lab. The placenta was delivered at 20-21 intact, the estimated blood loss was 1 50 mL. There is a first-degree laceration was repaired with 2-0 repeat. The mother tolerated the proc edure well the baby went to the well baby nursery with Apgars of 9 and 9 weighing 3225 g LABOR SUMMARY EDC: 05/14/2017 00:00 No. Babies in Womb: 1 Attempted: No Labor Anesthesia: Epidural LABOR INFORMATION Onset of Labor: 05/09/2017 10:00 Complete Dilatation: 05/09/2017 21:32 Group B Beta Strep: Negative Steroids Given: None Reason Steroids Not Administered: Not Applicable MEMBRANES Membranes Rupture Method: Artificial Rupture of Membranes: 05/09/2017 16:15 Length of Rupture (hrs): 6.03 Amniotic Fluid Color: Clear Amniotic Fluid Amount: Moderate Amniotic Fluid Odor: Normal STAGES OF LABOR Stage 1 hrs: 11 Stage 1 min: 32 Stage 2 hrs: 0 Stage 2 min: 45 Stage 3 hrs: 0 Stage 3 min: 4 Total Time in Labor hrs: 12 Total Time in Labor min: 21 VAGINAL DELIVERY Episiotomy: None Laceration Extension: First Degree Initial Vag Sponge Count: 5 Final Vag Sponge Count: 5 Initial Vag Sharps Count: 2 Final Vag Sharps Count: 2 Sponge Count Correct: Yes Sharps Count Correct: Yes BABY A INFORMATION Delivery Date/Time: 05/09/2017 22:17 Method of Delivery: Vaginal Born in Route : No : N/A Forceps: Outlet Vacuum Extraction: N/A Shoulder Dystocia : No SHOULDER DYSTOCIA BABY A Infant Delivery Date/Time: 05/09/2017 22:17 PRESENTATION/POSITION BABY A Presentation: Cephalic Cephalic Presentation: Vertex PLACENTA INFORMATION BABY A Placenta Delivery Time : 05/09/2017 22:21 Placenta Method of Delivery: Spontaneous Placenta Status: Delivered SCORES BABY A Heart Rate 1 min: >100 bpm Resp Effort 1 min: Good Cry Reflex Irritability 1 min: Cough or Sneeze or Pulls Away Muscle Tone 1 min: Active Motion Resuscitation Effort 1 min: Tactile Stimulation Heart Rate 5 min: >100 bpm Resp Effort 5 min: Good Cry Reflex Irritability 5 min: Cough or Sneeze or Pulls Away Muscle Tone 5 min: Active Motion Color 5 min: Body [place], Extremities Blue Resuscitation Effort 5 min: N/A SCORE 5 MIN: 9 INFORMATION BABY A Gestational Age at Delivery: 39.2 Gestational Status: Term Infant Outcome : Liveborn Condition : Stable Sex: Female IDENTIFICATION/MEDS BABY A ID Band Number: [id number] ID Band Location: Left Leg; Left Arm WEIGHT/LENGTH BABY A Infant Birthweight (gms): 3225 Infant Weight (lb): 7 Weight (oz): 2 CORD INFORMATION BABY A No. Cord Vessels: 3 Nuchal Cord : N/A Cord Blood Taken: Yes Suction: Mouth; Nose
--- NOTE | 2017-05-09 23:13 | OBHP ---
Datetime: 05/09/2017 16:03 IP Adm Impression: Term, intrauterine IP Admit Plan: Admit to unit; Initiate labor protocol Admit Comment, IP Provider: 21 y/o @39.2 weeks IUP presents for uterine contractions. The maddy ent reports contractions started at 10:00 this morning, occur now every 4 minutes, and are becoming s tronger. The patient denies VB, LOF, headaches, chest pain, SOB, or fever. The patient is on cefdin ir 300 mg QHS for recurrent UTI and pyelonephritis 02/2017. Last clinic was 04/26/2017 LOLY: 05/14/2017 Clinic: [facility] Allergies: NKDA GBS: neg ABO-Rh: A pos antibody: neg RPR: neg HIV: neg HBsAg: neg Rubella: immune GC/C: neg PPD: ??? TDAP: 02/26/2017 PMH: none PSHx: none OBHx: none O: gen: NAD, AAOx3 CV: RRR resp: CTA bilaterally Pelvic: 4 cm, 70%, -2, intact membranes bedside U/S: cephalic presentation A: 21 y/o @39.2 weeks IUP presents for uterine contractions. P: admit to unit initiate labor protocol continuous monitoring CBC w/ diff ordered type and screen ordered IV saline lock LR IV bolus ordered LR IV @ 125mL/hr ordered continue cefdinir 300 mg HS anesthesia consult ordered for epidural anticipate vaginal delivery Thierry Hauser MD Rn Relief Charge PGY-2 The patient was seen with the resident I agree with the note. Pelvic Type - PN: Adequate Extremities - PN: Normal Abdomen - PN: Normal Back - PN: Normal Breast - PN: Not Done Lungs - PN: Normal Heart - PN: Normal Thyroid - PN: Not Done Neurologic - PN: Normal HEENT - PN: Normal General - PN: Normal FHR - Baseline A Provider: 145 Membranes, Provider: Intact Comments, ACOG Physical Exam: bedside U/S: cephalic presentation IP Hx Assessment: The History has been Reviewed and is Current EGA AdmitDate IP: 39.2 Vital Signs Provider: Reviewed; Within Normal Limits IP Indication for Induction: Not Applicable IP Chief Complaint: Uterine contractions NICHD Variability Prov Fetus A: Moderate 6-25bpm NICHD Accel Fetus A IP Provider: 15X15 FHR Category Provider Fetus A: Category I NICHD Decel Fetus A IP Provider: None Dilatation, Provider: 4 Effacement, Provider: 70 Station, Provider: -2 Genitourinary Exam: Normal DTRs - PN: Not Done Datetime: 03/12/2017 19:08 Gestation - Est Wks by US: 30.6 Vital Signs Provider Details: Non-alarming VS
[2017-05-10] MEDS ORDERED: Oxycodone/Acetaminophen 5/325 mg Tab PO PRN (00:31)
[2017-05-10 07:15] LABS: MEAN CELL VOLUME 84.3 fl (81.0-99.0); MEAN CORPUSCULAR HEMOGLOBIN 27.3 pg (27.0-31.0); MEAN CORPUSCULAR HGB CONC 32.4 g/dL (33.0-37.0); RED CELL DISTRIBUTION WIDTH 13.3 % (11.5-14.5); WHITE BLOOD COUNT 14.1 K/uL (4.8-10.8)
--- NOTE | 2017-05-10 08:36 | CP.PCM.PCO ---
Physician Communication Note - Physician Communication Note Physician Communication Note: Patient seen this morning at bedside. Patient with baby girl.
--- NOTE | 2017-05-10 15:00 | OBPPN ---
Datetime: 05/10/2017 07:01 PP Pain Prov: Within normal limits PP Nausea Prov: Denies PP Flatus Prov: No PP BM Prov: No PP Breasts Prov: Not Done PP Heart Prov: Normal PP Lungs Prov: Normal PP Abdomen/Uterus Prov: Normal PP Lochia Prov: Normal PP Vulva/Perineum Prov: Not Done PP CVA Tenderness Prov: Not Done PP Extremities Prov: Normal PP C/S Incision Prov: Not Applicable PP Progress Prov: Normal PP Impression Prov: Normal progression PP Plan Prov: Continue present management PP Progress Note Prov: S: 21 yo s/p NVD on 05/09/17 at 22:17. Pt. is seen and examined at bedsid e this AM. No overnight events. Pt reports mild abdominal pain well controlled with pain meds. Pt is ambulating without any difficulties. Breast feeding baby. Tolerating PO diet. Lochia is similar to li t menses in volume. Voiding freely, No Bowel movement, and no passing gas yet. Denies fever/chills , diarrhea, nausea/vomiting, chest pain, dyspnea, and dizziness. O: VS: stable GEN: NAD Cardio: s1s2, no M/G/R Resp: clear breath sounds b/l Abdomen: BS+, NT, Uterus is firm and at the level of the umbilicus. EXT: No edema, calves nontender NEURO/PSYCHI: AAOx3, no grossly focal deficit, preserved affect and mood. Assessment/Plan: 21 yo s/p NVD on 05/09/17 at 22:17 doing well on PPD1. OOB with precaution SCDs for DVT prophylaxis Ibuprofen 600mg for pain. Colace 100mg PO BID for constipation Encourage and ambulating F/u CBC post-delivery Kory Kenyon PYG 1 [facility] ADDENDUM: pt seen _ examined by me. agree with above assessment and plan. IP PP Procedures: None Vital Signs Provider PP: Reviewed; Within Normal Limits
[2017-05-10] MEDS ORDERED: Cefdinir 300 MG CAP PO SCH (22:00)
--- NOTE | 2017-05-11 10:03 | OBDCSUM ---
Datetime: 05/11/2017 06:53 Discharged to, Provider: Home Follow up at, Provider: [facility] Disch Instr Activity: Normal activity Disch Instr Diet: Regular Discharge Instructions, Provider: Routine instructions given Discharge Diagnosis, Provider: Term Delivered Follow up in weeks, Provider: 4-6 weeks for care Disch Referrals: None Contraception discussed, Prov: Yes Disch Activity Restrictions: No sexual activity; Nothing in vagina - [place], tampons, douche Discharge Comment, Provider: Discharge Summary DOA: 05/09/2017 EGA: 39.2 Diagnosis: NVD Term PRisk factors: none summary of : 21 yo F L_D summary DOL: at 22:17 NVD NB: F : 9 Weight: 3225g PP summary No serious complications during PP. Lochia= menses, mild pain, controlled with medications Rubella immune, Tdap 02/26/17 Blood type: A+ CBC pp: 9.7/30.0 Discharge Date: 05/11/2017 Time 10:00 AM Discharge Instructions: -encourage -percocet/Ibuprofen for pain PRN. -Ferrous sulfate for anemia -Colace for constipation -Ambulate as tolerated -f/u NB visit and PP visit via [facility] --- Satya Gao, PGY-1 Contraception after Delivery: Foam/Condoms
--- NOTE | 2017-05-11 10:03 | OBPPN ---
Datetime: 05/11/2017 06:48 PP Pain Prov: Within normal limits PP Nausea Prov: Denies PP Flatus Prov: Yes PP BM Prov: Yes PP Breasts Prov: Not Done PP Heart Prov: Normal PP Lungs Prov: Normal PP Abdomen/Uterus Prov: Normal PP Lochia Prov: Normal PP Vulva/Perineum Prov: Not Done PP CVA Tenderness Prov: Normal PP Extremities Prov: Normal PP C/S Incision Prov: Not Applicable PP Progress Prov: Normal PP Impression Prov: Normal progression PP Plan Prov: Discharge PP Progress Note Prov: S: 21 yo s/p NVD on 05/09/17 at 22:17. Pt. is seen and examined at [facility] e this AM. No overnight events. Pt reports mild abdominal pain well controlled with pain meds. Pt is ambulating without any difficulties. Breast feeding baby. Tolerating PO diet. Lochia is similar to li ght menses in volume. Voiding freely, Bowel movement, and passing gas yet. Denies fever/chills, diarr hea, nausea/vomiting, chest pain, dyspnea, and dizziness. O: VS: stable GEN: NAD Cardio: s1s2, no M/G/R Resp: clear breath sounds b/l Abdomen: BS+, NT, Uterus is firm and at the level of the umbilicus. EXT: No edema, calves nontender NEURO/PSYCHI: AAOx3, no grossly focal deficit, preserved affect and mood. CVA: negative Assessment/Plan: 21 yo s/p NVD on 05/09/17 at 22:17 doing well on PPD1. OOB with precaution Ibuprofen 600mg for pain. Colace 100mg PO BID for constipation Encourage and ambulating F/u CBC post-delivery; 9.7/30.00 --- Satya Gao, PGY-1 OB Hospitalist note On rounds today I saw this patinet and agree with note. She is PPD2 and for discharge MAHNDO IP PP Procedures: None Vital Signs Provider PP: Reviewed; Within Normal Limits
[2017-05-11 18:43] VITALS: BP 128/73; PULSE 83; RESP 20; TEMP 98.9; O2SAT 100
== END 2017-05-11 14:20 | disposition home or self-care (01) | DRG 775 ==
LOC: H.EROB2 14:41 → H.L&D 15:19 → H.OB/GYN 05-10 00:15
PROVIDERS: ADMIT Obstetrics & Gynecology Gynecology; ATTEND Obstetrics & Gynecology Gynecology
PROC: 0HQ9XZZ Repair Perineum Skin, External Approach (ICD-10-PCS; principal; 2017-05-09)
PROC: 10E0XZZ Delivery of Products of Conception, External Approach (ICD-10-PCS; 2017-05-09)
PROC: 4A1HXCZ Monitoring of Products of Conception, Cardiac Rate, External Approach (ICD-10-PCS; 2017-05-09)
DX: O70.0 First degree perineal laceration during delivery (principal); K59.00 Constipation, unspecified; Z37.0 Single live birth; Z87.440 Personal history of urinary (tract) infections; Z3A.39 39 weeks gestation of pregnancy

== ENCOUNTER 2019-01-27 10:12 | Emergency (ER) | payer OTHER, SELFPAY ==
[2019-01-27 10:20] VITALS: BMI 30.9
--- NOTE | 2019-01-27 11:25 | ED PDOC ---
HPI: CCC, URI, Sore Throat Time Seen by Provider: 01/27/19 10:32 Chief Complaint (Nursing): ENT Problem Chief Complaint (Provider): Right ear pain History Per: Patient History/Exam Limitations: no limitations Additional Complaint(s): 23 y/o F with no significant PMH who presents with Right ear pain x 2 days. Was cleaning her ear with drops recently. Denies fever, chills, N/V, diarrhea, sore throat. Has mild Right sided facial pain as well. She last took Ibuprofen 400mg this morning at about 9:30am. States that she is having trouble hearing out of the ear. Past Medical History Reviewed: Historical Data, Nursing Documentation, Vital Signs Vital Signs: Last Vital Signs Temp 99.6 F 01/27/19 10:20 Pulse 94 H 01/27/19 10:20 Resp 17 01/27/19 10:20 BP 119/82 01/27/19 10:20 Pulse Ox 97 01/27/19 10:20 Primary Care Provider: FAMILY PROVIDER,NO - Medical History PMH: No Chronic Diseases Denies: Depression, Diabetes, HTN, Chronic Kidney Disease - Family History Family History: States: Unknown Family Hx - Immunization History Hx Tetanus Toxoid Vaccination: No Hx Influenza Vaccination: No Hx Pneumococcal Vaccination: No - Home Medications Home Medications: Ambulatory Orders Medication Instructions Recorded Vit Calc,Iron,Folic 1 tab PO DAILY 03/07/17 [ Vitamins] Ferrous Sulfate 325 mg PO DAILY PRN #30 tablet 05/11/17 Ibuprofen [Motrin Tab] 600 mg PO Q6 PRN #30 tab 05/11/17 Sennosides [Senokotxtra] 17.2 mg PO HS PRN #15 tablet 05/11/17 Amoxicillin 875 mg PO BID #7 tablet 01/27/19 Ciprofloxacin/Hydrocortisone 3 drop OT BID 7 Days drops.susp 01/27/19 [Cipro Hc Otic Suspension] Ibuprofen [Motrin Tab] 600 mg PO Q6 PRN 7 Days tab 01/27/19 - Allergies Allergies/Adverse Reactions: Allergies Allergy/AdvReac Type Severity Reaction Status Date / Time No Known Allergies Allergy Verified 03/07/17 01:47 Review of Systems Constitutional: Negative for: Fever ENT: Positive for: Ear Pain. Negative for: Ear Discharge, Throat Pain Respiratory: Negative for: Cough Physical Exam - Reviewed Nursing Documentation Reviewed: Yes Vital Signs Reviewed: Yes - Physical Exam Appears: Positive for: Uncomfortable ENT: Positive for: TM Is/Are (left normal, Right ear with + swelling and redness of ear canal as well as effusion behind TM w/ bulging. + pain on palpation of tragus. No mastoid bone tenderness. ), Other (mild R sided facial swelling). Negative for: Sinus Pain/Drainage, Pharyngeal Erythema, Tonsillar Exudate Neck: Positive for: Painless ROM, Supple Cardiovascular/Chest: Positive for: Regular Rate, Rhythm Respiratory: Positive for: Normal Breath Sounds Neurological/Psych: Positive for: Awake, Alert, Oriented - ECG O2 Sat by Pulse Oximetry: 97 Medical Decision Making Medical Decision Making: Tylenol 975mg PO x 1 Disposition - Clinical Impression Clinical Impression: Otitis externa, Otitis media - Patient ED Disposition Is Patient to be Admitted: No - Disposition Referrals: [facility] [Outside] Disposition: Routine/Home Disposition Time: 12:24 Condition: STABLE Additional Instructions: Take full course of antibiotic ear drops and oral antibiotic for inner ear infection. Take Ibuprofen or Tylenol for pain. Return to ER if your pain worsens despite medication. Prescriptions: Amoxicillin 875 mg PO BID #7 tablet Ciprofloxacin/Hydrocortisone [Cipro Hc Otic Suspension] 3 drop OT BID 7 Days drops.susp Ibuprofen [Motrin Tab] 600 mg PO Q6 PRN 7 Days tab PRN Reason: Pain, Moderate (4-7) Instructions: Ear Infections (Otitis Media) (DC), Outer Ear Infection (DC) Forms: [employer] (Tanzanian) Print Language: ANGUILLAN
[2019-01-27 12:26] VITALS: BP 114/72; PULSE 96; RESP 18; TEMP 99.2
[2019-01-28 21:45] VITALS: O2SAT 97
== END 2019-01-27 12:24 | disposition home or self-care (01) ==
LOC: H.ER 10:12
DX: H60.90 Unspecified otitis externa, unspecified ear (principal); H66.90 Otitis media, unspecified, unspecified ear